=== PATIENT | male | born 1960 | race Caucasian/White ===

== ENCOUNTER 2018-01-18 19:50 | Emergency (ER) | payer BC ==
[2018-01-18] MEDS ORDERED: BUFFERED LIDOCAINE 10 ML SYRINGE SUBQ STA (20:29)
[2018-01-18] MEDS ORDERED: TETANUS/DIPHTHERIA/PERTUSSIS 0.5 ML SYRINGE IM ONE (20:29)
--- NOTE | 2018-01-18 20:31 | ED Physician Documentation ---
PD HPI UPPER EXT INJURY - Stated complaint Stated Complaint: LT FINGER INJ - Chief complaint Chief Complaint: Laceration - History obtained from History obtained from: Patient - History of Present Illness Location: Other (Cutting something at home prior to arrival today and cut the left index finger. Tetanus is out of date.) Review of Systems Constitutional: reports: Reviewed and negative Cardiac: reports: Reviewed and negative Respiratory: reports: Reviewed and negative PD PAST MEDICAL HISTORY - Past Medical History Past Medical History: No - Past Surgical History Past Surgical History: Yes General: Other - Present Medications Home Medications: Ambulatory Orders Medication Instructions Recorded Confirmed Cephalexin [Keflex] 500 mg PO QID #14 capsule 01/18/18 HYDROcod/ACETAM 5/325 [[place] 5/325] 1 - 2 ea PO Q6H PRN #10 tablet 01/18/18 - Allergies Allergies/Adverse Reactions: Allergies Allergy/AdvReac Type Severity Reaction Status Date / Time No Known Drug Allergies Allergy Verified 01/18/18 20:07 - Social History Does the pt smoke?: No Smoking Status: Never smoker Does the pt drink ETOH?: Yes ETOH Use: Wine Does the pt have substance abuse?: No - Immunizations Immunizations: TDAP >10years/unknown, Other immun current PD ED PE NORMAL - Vitals Vital signs reviewed: Yes - General General: Alert and oriented X 3, No acute distress - Extremities Extremities: Other (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 The residual tissue is laid in place on top.) Results - Vitals Vitals: Vital Signs - 24 hr 01/18/18 20:04 Temperature 36.2 C L Heart Rate 103 H Respiratory 18 Rate Blood Pressure 150/91 H O2 Saturation 99 Oxygen O2 Source Room air Procedures - Laceration (location) L 2nd finger Length in cm: 2 Wound type: Curved, Other (It was complete amputation of the top of the tip of the finger including part of the nailbed, the piece was intact and in place, the nail was debrided off of it and thoroughly irrigated. Then tacked into place after digital block with buffered lidocaine using 5-0 nylon distally, 5 sutures and 1 subcuticular stitch proximally. That was with 5-0 gut.) Departure - Departure Disposition: 01 Home, Self Care Clinical Impression: Laceration Condition: Good Record reviewed to determine appropriate education?: Yes Instructions: ED Laceration Hand Follow-Up: [facility] [Provider Group] [facility] [Provider Group] [facility] [Provider Group] Prescriptions: Cephalexin [Keflex] 500 mg PO QID #14 capsule HYDROcod/ACETAM 5/325 [[place] 5/325] 1 - 2 ea PO Q6H PRN #10 tablet PRN Reason: Pain Comments: Keep the current dressing on for 48 hours. After that you can gingerly wash it with soap and water and then put bacitracin ointment on it which is available [id number], and then a gauze wrap. Keep it covered at all other times and protected. The 5 nylon sutures which are the black ones need to come out and 2 weeks with your doctor. Return for signs of infection including redness, swelling, drainage, increased pain or fever. Your blood pressure was elevated today on check into the emergency department. This does not mean that you have hypertension, it is a common phenomenon to come to the emergency department and have elevated blood pressure. I recommend that you see your primary care physician within the week to have it rechecked when you are feeling better. Do not drink or drive while taking narcotic pain medication. Note that many narcotic pain relievers also contain Tylenol/acetaminophen. Please ensure that your total dose of acetaminophen from all sources does not exceed 3 g (3000 mg) per day. You may get constipated while on this medication. Take a stool softener such as Colace twice a day while you are on it. Also add an [id number]-drzxdak laxative such as senna or MiraLAX on any day that you do not have a bowel movement. If you received a narcotic pain medication or sedative while in the emergency department, do not drive for the next 24 hours.
[2018-01-18] MEDS ORDERED: HYDROcod/ACET 5/325 Prepack 6 PO STA (20:54)
[2018-01-18] MEDS ORDERED: cephALEXin 250 MG CAPSULE PO STA (20:54)
[2018-01-18 21:27] VITALS: BP 148/98
== END 2018-01-18 21:23 | disposition home or self-care (01) ==
LOC: ED 19:50
DX: S68.111A Complete traumatic metacarpophalangeal amputation of left index finger, initial encounter (principal); W45.8XXA Other foreign body or object entering through skin, initial encounter; Y92.009 Unspecified place in unspecified non-institutional (private) residence as the place of occurrence of the external cause; R03.0 Elevated blood-pressure reading, without diagnosis of hypertension; Z23 Encounter for immunization
CPT/HCPCS: 11760; 90471; 90715; 99283; A9270

== ENCOUNTER 2020-11-02 07:19 | Outpatient (CLI) | payer OTHER ==
--- NOTE | 2020-11-02 11:30 | MRI Report ---
PROCEDURE: Ankle LT W/O INDICATIONS: LT FOOT PAIN, PAINFUL LUMP TECHNIQUE: Noncontrast sagittal T1 spin echo and T2 fast spin echo with fat saturation, axial proton density fas t spin echo and T2 fast spin echo with fat saturation, coronal T1 spin echo and T2 fast spin echo wit h fat saturation through the ankle/hindfoot. COMPARISON: None. FINDINGS: Image quality: Excellent. Bones and joints: No acute fracture. No suspicious osseous lesion of the midfoot or hindfoot bones is present. No joint effusions. No osteochondral defects. There is diffuse hindfoot and midfoot degenerative spurring and subchondral sclerosis Medial structures: Deltoid ligament intact. Spring ligament intact. Posterior tibialis intact. There is mild posterior tibialis tenosynovitis. Flexor digitorum longus intact Flexor hallucis longus intact Posterior tibial neurovascular bundle appears normal within the tarsal tunnel, without extrinsic mass effect. Lateral structures: Anterior talofibular ligament intact. Calcaneofibular ligament intact. Posterior talofibular ligament intact. Anterior tibiofibular ligament intact. Posterior tibiofibular ligament intact. Peroneus longus normal Peroneus brevis normal. Sinus tarsi demonstrates normal fatty signal. Anterior structures: Dorsal talonavicular ligament intact. Tibialis anterior normal Extensor hallucis longus normal. Extensor digitorum longus normal Posterior and plantar structures: Achilles tendon intact. There is marked thickening of the calcaneal attachment of the medial band of the plantar fascia in ke eping with plantar fasciitis. There is adjacent soft tissue edema IMPRESSION: Medial band plantar fasciitis. Mild posterior tibialis tenosynovitis Reviewed by: Catalino Lynch MD on 11/02/2020 11:29 AM PST Approved by: Catalino Lynch MD on 11/02/2020 11:29 AM PST Station ID: [id number]
== END 2020-11-02 07:20 | disposition home or self-care (01) ==
LOC: DI 07:19
PROVIDERS: ATTEND Podiatrist
DX: M72.2 Plantar fascial fibromatosis (principal); M65.872 Other synovitis and tenosynovitis, left ankle and foot; R60.0 Localized edema

== ENCOUNTER 2021-11-16 12:33 | Outpatient (CLI) | payer OTHER ==
--- NOTE | 2021-11-16 14:38 | XRAY Report ---
PROCEDURE: Hand 3 View RT INDICATIONS: RIGHT HAND PAIN, 2ND DIGIT TECHNIQUE: 3 views of the hand(s) acquired. COMPARISON: None FINDINGS: Bones: No fractures or dislocations. Mild interphalangeal joint osteoarthritic changes are seen with joint space narrowing and subchondral sclerosis. No gross bony erosive changes are seen. No suspicio us bony lesions. Soft tissues: No suspicious soft tissue calcifications. 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 No fracture or dislocation. No gross bony eros theresa changes. Reviewed by: Perez Santana MD on 11/16/2021 2:37 PM PST Approved by: Perez Santana MD on 11/16/2021 2:37 PM PST Station ID: [id number]
== END 2021-11-16 12:34 | disposition home or self-care (01) ==
LOC: DI.N 12:33
PROVIDERS: ATTEND Physician Assistant
DX: M19.041 Primary osteoarthritis, right hand (principal)

== ENCOUNTER 2022-06-15 08:28 | Outpatient (CLI) | payer OTHER | END 2022-06-15 08:29 | disposition home or self-care (01) | LOC: SC 08:28 | PROVIDERS: ATTEND Nurse Practitioner Family | DX: G47.33 Obstructive sleep apnea (adult) (pediatric) (principal) | CPT/HCPCS: 95806 ==

== ENCOUNTER 2022-08-05 19:35 | Outpatient (CLI) | payer OTHER | END 2022-08-05 19:36 | disposition home or self-care (01) | LOC: SC 19:35 | PROVIDERS: ATTEND Internal Medicine Pulmonary Disease | DX: G47.33 Obstructive sleep apnea (adult) (pediatric) (principal) | CPT/HCPCS: 95810 ==

== ENCOUNTER 2022-08-22 09:13 | Outpatient (CLI) | payer OTHER ==
[2022-08-22 09:34] VITALS: BP 140/90
--- NOTE | 2022-08-22 09:34 | SLEEP CARE CONSULTATION ---
Information from patient questionnaire entered by Patito Chawla. I have reviewed and concur with the information entered by Patito Chawla. This document represents the service I personally performed and the decisions made by , Elo Anderson ARNP. History of Present Illness Service Date and Time: 08/22/2022912 Initial Tyler Sleepiness Scale score: 10 (06/07/2022) Current Tyler Sleepiness Scale score: 1 (08/22/22) Additional HPI information: [facility] returns for follow up and results of the recently performed polysomnography. I explained the pathophysiology behind obstructive sleep apnea. We then spent quite a bit of time discussing different treatment options. For mild obstructive sleep apnea, surgery and oral appliance are alternatives to nasal CPAP therapy but in moderate or severe cases, nasal CPAP is the most effective and reliable treatment. Because apnea is primarily in supine position, then positional management therapy could be effective. Methods discussed such as positioning with pillows to prevent supine sleep. I reviewed the impact of weight changes on sleep apnea and strongly recommended losing weight. After some discussion, the patient opted to go with the nasal CPAP therapy. Nasal autoCPAP set at 4-15 cmH20 will be ordered with rationale explained. A manual titration study will be ordered if unable to find optimal pressure with office adjustments. I explained how CPAP machine works and what to expect when using the machine. Using CPAP every night in order to get used to it was emphasized. Patient advised to put CPAP mask on before getting into bed so as not to fall asleep without CPAP. To assist acclimation to CPAP use, it could also be used for a short time during day while reading or watching TV. The patient was instructed to call the CPAP supplier to discuss any mechanical problem that may occur. If the mask given is uncomfortable or is difficult to keep on through the night even with adjustment, contact the CPAP supplier as many will replace with another mask style if notified before 30 days. If snoring or perceives is not getting enough air or too much air from the machine, notify this office. Patient counseled not drink alcohol less than 4 hours before bedtime as it can increase snoring and apnea. Patient was cautioned about risks of drowsy driving until sleepiness symptoms resolve. Patient denies drowsy driving. Sleep Study - Results Type of Sleep Study: Polysomnography (DONE ON 08/05/22) Prior sleep studies: Yes Year and Where: 09/01/2009 [facility] Polysomnography/Home Sleep Study results: IMPRESSION: The quality of the study is good. The patient had slightly reduced sleep efficiency due to frequent awakenings during the night. The sleep architecture was abnormal for sleep fragmentation and reduced amount of time spent in slow wave sleep (N3). Respiratory monitoring showed moderate obstructive sleep apnea-hypopnea (AHI = 19.6) associated with frequent arousals, oxyhemoglobin desaturation and mild hypoxia (christina oxygen saturation of 82%). The respiratory events occurred almost exclusively during supine sleep (supine AHI = 35.9; non-supine = 0.41). Snore was moderate to loud in intensity. There was no significant periodic leg movement of sleep. Cardiac rhythm was normal sinus rhythm without significant arrhythmia. No abnormal behavior (parasomnia) observed during the night. Allergies and Home Medications Drug allergies reviewed: Yes (NKDA) Home medication list reviewed: Yes (no changes) Allergy and home medication list: Allergies No Known Drug Allergies Allergy (Verified 01/18/18 20:07) Review of Systems Review of systems same as previous: Yes (no changes) Physical Exam Vital signs obtained and entered by: CYNTHIA LOUIE Blood Pressure: 140/90 (left arm ) Cuff size: regular Heart Rate: 83 O2 Saturation: 98 Height: 5 ft 11 in Weight: 215 lb Body Mass Index: 29.9 BMI Classification: Overweight Impression and Plan 1. Obstructive Sleep Apnea-Hypopnea Syndrome, moderate, with lowest oxygen saturation of 82%. Obviously this is the cause of the patients symptoms of unrefreshed sleep, and excessive daytime sleepiness. Positive pressure therapy could benefit hypertension. As mentioned above, the patient will be started on nasal autoCPAP therapy with pressure set at 4-15 cmH2O. Compliance guidelines also reviewed. A copy of compliance guidelines will be given for reference at check out. Because the apnea is more severe supine, I instructed to avoid sleeping supine using pillow positioning until able to start CPAP use. * Nasal auto CPAP therapy, pressure at 4-15 cm H2O. * Attempt to lose weight. * Avoid alcohol consumption near bedtime. * Avoid supine sleep until using CPAP. * The patient is again cautioned about driving until sleepiness completely resolves. * Return one month after CPAP obtained. I will assess response to therapy and compliance at that time. Counseling Topics: Weight loss health impact Visit Type: In Office Time Spent with Patient (minutes): 20 Provider Statement: I spent 100% of the Face to Face Visit with the patient with greater than 50% spent counseling the patient and coordination of care.
== END 2022-08-22 09:14 | disposition home or self-care (01) ==
LOC: SC 09:13
PROVIDERS: ATTEND Nurse Practitioner Family
DX: G47.33 Obstructive sleep apnea (adult) (pediatric) (principal); E66.3 Overweight; Z68.29 Body mass index [BMI] 29.0-29.9, adult
CPT/HCPCS: 99212; 99213